=== PATIENT | male | born 1975 | race Caucasian/White ===

== ENCOUNTER 2017-06-29 14:47 | Outpatient (CLI) | payer OTHER | END 2017-06-29 14:48 | disposition home or self-care (01) | LOC: DTY/OP 14:47 | PROVIDERS: ATTEND Surgery | DX: I10 Essential (primary) hypertension (principal); G47.30 Sleep apnea, unspecified | CPT/HCPCS: 97802 ==

== ENCOUNTER 2017-07-19 08:44 | Outpatient (CLI) | payer OTHER ==
--- NOTE | 2017-07-19 10:29 | RAD ---
TWO VIEWS OF CHEST: DATE: 07/19/17. COMPARISON: 07/23/14. HISTORY: Cough. FINDINGS: No pneumothorax, pleural fluid, focal consolidation, or alveolar edema. Heart and mediastinal conto urs unremarkable. IMPRESSION: No acute findings. POS: [facility]
== END 2017-07-19 08:45 | disposition home or self-care (01) ==
LOC: RAD 08:44
PROVIDERS: ATTEND Internal Medicine Critical Care Medicine
DX: R06.00 Dyspnea, unspecified (principal)
CPT/HCPCS: 71020

== ENCOUNTER 2017-09-29 06:17 | Day surgery (SDC) | payer OTHER ==
[2017-09-28 11:40] VITALS: BMI 49.9
[2017-09-29] MEDS ORDERED: Heparin 10,000 UNITS/1 ML VIAL ONE (06:34)
[2017-09-29] MEDS ORDERED: Verapamil 5 MG/2 ML VIAL ONE (08:00)
[2017-09-29] MEDS ORDERED: Nitroglycerin 100MG/250ML BOT 250 ML ONE (08:00)
[2017-09-29 08:07] LABS: #Basophils 0.1 thou/uL (0.0-0.2); #Eosinphils 0.2 thou/uL (0.0-0.7); #Lymphocytes 1.7 thou/uL (1.20-3.40); #Monocytes 0.5 thou/uL (0.11-0.59); %Basophils 0.9 % (0.0-1.0); %Eosinophils 3.1 % (0.0-10.0); %Lymphocytes 26.2 % (21.0-51.0); %Monocytes 7.2 % (0.0-10.0); %Neutrophils 62.6 % (42.0-75.0); Hemoglobin 13.1 g/dL (14.0-18.0); Mean Corpuscular Hemoglobin 32.4 pg (27.0-31.0); Mean Corpuscular Volume 98.4 fl (80.0-94.0); Mean Platelet Volume 7.4 fL (7.4-10.4); Platelet Count 241 thou/uL (130-400); RBC Distribution Width 12.1 % (11.5-14.5); Red Blood Cell (RBC) Count 4.03 mill/uL (4.70-6.10); White Blood Cell (WBC) Count 6.4 thou/uL (4.8-10.8)
[2017-09-29] MEDS ORDERED: Midazolam HCl 2 mg/2 ml Vial ONE ×2 (08:15→08:42)
[2017-09-29 08:20] LABS: INR-International Normal Ratio 1.1; PTT 26.2 SEC (22.9-36.1); Prothrombin Time 13.8 SEC (12.0-14.7)
--- NOTE | 2017-09-29 15:45 | DIS ---
He enters for a procedure, he had a procedure today, and was being discharged afterwards the date of procedure is 09/29/2017. INDICATION FOR PROCEDURE: A 42-year-old patient who was seen as a preop evaluation prior to undergoing a gastric sleeve procedure. He underwent a PET scan, was found to have abnormal SPECT scan with inferior wall ischemia and was advised to undergo cardiac catheterization. He was taken to cardiac pathology laboratory technologist where prepped and draped in sterile fashion. Using a right radial artery approach the procedure was performed . Impression was that there was no evidence of significant coronary artery disease. The right coronary artery is of reasonable size in the proximal area , but small distally , he has a nondominant right coronary There was nom stenosis in the RCA. The dominant vessel was left circumflex. He has no significant flow-limiting disease in the left anterior descending artery or in the circumflex or any other branches. He also has a relatively well preserved left ventricular systolic function. Ejection fraction was estimated at 50%-55%. ADMITTING DIAGNOSES: Morbid obesity, sleep apnea, and diastolic dysfunction as well as hypertension. DISCHARGE DIAGNOSES: Morbid obesity, sleep apnea, and diastolic dysfunction as well as hypertension except there is no evidence of coronary artery disease. DISCHARGE MEDICATIONS: Same as his admission medications. These include Meloxicam 7.5 mg daily, escitalopram 20 mg daily, tramadol ER 200 mg extended tablets 1-2 daily, pantoprazole 40 mg daily, diazepam 10 mg b.i.d. as needed, metoprolol 200 mg daily, lisinopril 10 mg/hydrochlorothiazide 12.5 mg 1 daily, hydrocodone 10 mg/acetaminophen one tablet q.4-6 h. p.r.n. for pain, and Seroquel 200 mg 1 p.o. daily. He will follow with Dr. Arnold in the next 2-3 months or as determined by Dr. Arnold. He can proceed with his gastric procedure. He should be actually had a low risk for any acute cardiac events. HOSPITAL COURSE: This is a very pleasant 42-year-old gentleman with morbid obesity was seen by Dr. Arnold to undergo preop evaluation. During the evaluation, was found to have an abnormal stress test with PET scan compatible with probable inferior wall ischemia and was advised to undergo cardiac catheterization with possible intervention. He was taken to the cardiac catheterization lab where he underwent the procedure today. There was no evidence of significant coronary artery disease. He does have a small nondominant vessel on the right, but no evidence of stenosis and no evidence of stenosis in the left circumflex or left anterior descending artery which are large sized vessels without evidence of occlusion and he has preserved left ventricular systolic function. During the procedure with the injection of the right coronary artery , inadvertently contrast was injected into the conus artery. The patient did develop ventricular fibrillation. He required one shock at 300 joules and was promptly converted back to a sinus rhythm without complications or any evidence of sequelae noted. He did not have any other significant arrhythmias during the procedure except during the left ventriculogram with some irregular rhythms or some tachycardia due to the catheter placement. Otherwise, the left ventricular systolic function also was normal. We used a right radial approach for the procedure without difficulties. The patient will be discharged home in the next 3-4 hours if he remains stable, will see him back in the office as noted above and he can continue his followups for his bariatric surgery as planned. CE
--- NOTE | 2017-10-01 00:18 | EKG ---
Test Reason : PREOP Blood Pressure : / mmHG Vent. Rate : 073 BPM Atrial Rate : 073 BPM P-R Int : 216 ms QRS Dur : 098 ms QT Int : 402 ms P-R-T Axes : 017 050 037 degrees QTc Int : 442 ms Sinus rhythm with 1st degree A-V block Otherwise normal ECG No previous ECGs available Confirmed by Mahesh GEIGER ([id number]) on 10/01/2017 12:17:21 AM Referred By: TITUS Confirmed By:Mahesh GEIGER
== END 2017-09-29 12:25 | disposition home or self-care (01) ==
LOC: CCL 06:17
PROVIDERS: ATTEND Internal Medicine Cardiovascular Disease
DX: R94.39 Abnormal result of other cardiovascular function study (principal); E66.01 Morbid (severe) obesity due to excess calories; G47.33 Obstructive sleep apnea (adult) (pediatric); I51.9 Heart disease, unspecified; H91.93 Unspecified hearing loss, bilateral; I10 Essential (primary) hypertension; Z79.899 Other long term (current) drug therapy; Z68.42 Body mass index [BMI] 45.0-49.9, adult; Z96.642 Presence of left artificial hip joint; Z98.890 Other specified postprocedural states
CPT/HCPCS: 85025; 85610; 85730; 92960; 93005; 93010; 93458; 99152; 99153; C1769; J1644; J2250; J2270

== ENCOUNTER 2019-04-04 16:37 | Inpatient (IN) | payer OTHER ==
[2019-04-04] MEDS ORDERED: Sodium Chloride 0.9% 1,000 ML IV SCH (19:52)
[2019-04-04] MEDS ORDERED: HumaLOG 300 UNITS/3 ML VIAL SC PRN ×2 (20:55)
[2019-04-04] MEDS ORDERED: Acetaminophen 325 MG TAB PO PRN (20:55)
[2019-04-04] MEDS ORDERED: Dextrose 50% Abboject 50 ML SYRINGE SLOW IVP PRN (20:55)
[2019-04-04] MEDS ORDERED: Ondansetron PF 4 MG/2 ML Vial IVP PRN (20:55)
[2019-04-04] MEDS ORDERED: Ondansetron ODT 4 MG TAB PO PRN (20:55)
[2019-04-04] MEDS ORDERED: hydrALAZINE 20 MG/ML VIAL SLOW IVP PRN (20:55)
[2019-04-04] MEDS ORDERED: Dextrose 5% in Water 1,000 ML IV PRN (20:55)
[2019-04-04 21:38] VITALS: BMI 47.8
[2019-04-04] MEDS: Sodium Chloride 0.9% 1,000 ML IV SCH (21:42)
[2019-04-05] MEDS ORDERED: tiZANidine HCl 4 MG TAB PO PRN (00:19)
[2019-04-05] MEDS ORDERED: Acetaminophen 500 MG TAB PO SCH ×2 (01:00→21:00)
[2019-04-05] MEDS ORDERED: diphenhydrAMINE 25 MG CAP PO SCH ×2 (01:00→21:00)
[2019-04-05] MEDS: Piperacillin/Tazobactam 3.375 GM in Sodium Chloride 0.9% 100 ML IVPB SCH ×4 (01:04→18:04)
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
[2019-04-05 05:30] LABS: #Eosinphils 0.1 thou/uL (0.0-0.7); #Lymphocytes 1.4 thou/uL (1.20-3.40); #Monocytes 0.6 thou/uL (0.11-0.59); #Neutrophils 3.9 thou/uL (1.40-6.50); %Basophils 0.2 % (0.0-1.0); %Eosinophils 2.3 % (0.0-10.0); %Lymphocytes 23.2 % (21.0-51.0); %Monocytes 10.5 % (0.0-10.0); %Neutrophils 63.7 % (42.0-75.0); Hemoglobin 11.9 g/dL (14.0-18.0); Mean Corpuscular HGB CONC 34.9 g/dL (32.0-36.0); Mean Corpuscular Hemoglobin 33.9 pg (27.0-31.0); Mean Corpuscular Volume 97.1 fL (78.0-98.0); Mean Platelet Volume 8.7 fL (7.4-10.4); Platelet Count 161 thou/uL (130-400); RBC Distribution Width 12.8 % (11.5-14.5); Red Blood Cell (RBC) Count 3.52 mill/uL (4.70-6.10); White Blood Cell (WBC) Count 6.1 thou/uL (4.8-10.8)
[2019-04-05 05:42] LABS: Lactic Acid 1.3 mmol/L (0.5-2.2)
[2019-04-05 05:46] LABS: Anion Gap 10 mmol/L (10-20); BUN (Urea Nitrogen) 17 mg/dL (8.9-20.6); Calc. Creatinine Clearance 137 mL/min (70-130); Calcium 8.7 mg/dL (7.8-10.44); Carbon Dioxide 25 mmol/L (22-29); Chloride 106 mmol/L (98-107); Estimated GFR-MDRD 54; Glucose 102 mg/dL (70-105); Potassium 4.2 mmol/L (3.5-5.1); Sodium 137 mmol/L (136-145)
[2019-04-05] MEDS: Sodium Chloride 0.9% 1,000 ML IV SCH ×2 (06:00→14:36)
[2019-04-05] MEDS ORDERED: Enoxaparin Sodium 40 MG/0.4 ML SYRINGE SC SCH (09:00)
[2019-04-05 09:42] LABS: Iron 58 ug/dL (65-175); Iron Binding Capacity, Total 235 mcg/dL (261-462)
--- NOTE | 2019-04-05 14:17 | CON ---
DATE OF CONSULTATION: HISTORY OF PRESENT ILLNESS: The patient is a 44-year-old gentleman, who presented with abdominal discomfort. The patient has a history of an atypical chest pain. He has a long history of chest discomfort. He reports having dyspnea and chest pain with exertion. He underwent a cardiac catheterization for the symptoms in 2018. He was found to have normal left ventricular ejection fraction of 50% with normal coronary arteries. The patient states he has noticed having increasing dyspnea on exertion. He was admitted with abdominal discomfort. He continues to report chest pain with exertion. PAST MEDICAL HISTORY: Significant for, 1. Hypertension. 2. Diabetes mellitus. 3. Sleep apnea. 4. Chronic pain. 5. Depression. PAST SURGICAL HISTORY: He had tonsillectomy. He had hip surgery, knee surgery, and back surgery. SOCIAL HISTORY: Former smoker. ALLERGIES: NO KNOWN DRUG ALLERGIES. MEDICATIONS: See nursing list. FAMILY HISTORY: No strong family history of coronary artery disease. REVIEW OF SYSTEMS: Ten-point system otherwise unremarkable. PHYSICAL EXAMINATION: GENERAL: Obese gentleman, in no acute distress. VITAL SIGNS: Blood pressure 117/57. NECK: Showed no jugular venous distention. LUNGS: Clear to auscultation. HEART: Regular rate and rhythm. Normal S1, S2. ABDOMEN: Distended. EXTREMITIES: Showed no edema. VASCULAR: Radial pulses 2+. LABORATORY DATA: Sodium 137, potassium 4.2, chloride 106, bicarbonate 25, BUN 17, creatinine 1.4. His glucose is 102. His white blood cell count was 6.1, hemoglobin 11.9, hematocrit 34.1, platelets were 161. IMAGING STUDIES: His EKG reveals sinus tachycardia with otherwise normal ECG. IMPRESSION: 1. Abdominal discomfort. 2. Chest pain with history of normal coronary arteries. 3. Hypertension. 4. Diabetes mellitus. 5. Chronic pain syndrome. 6. Morbid obesity. This gentleman presents primarily with abdominal discomfort. He underwent an echocardiogram, which revealed a mild decrease in left ventricular systolic function. 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 The life-threatening consequence of not being compliant with his medications was explained to the patient. PLAN: The patient is on appropriate therapy with lisinopril, being on an SAM inhibitor therapy and high dose Toprol. The importance of weight loss has been explained to the patient. We will follow this patient with you through his hospitalization. Job ID: [id number]
[2019-04-05 15:43] VITALS: BP 139/72; TEMP 98.5
--- NOTE | 2019-04-05 16:27 | PDOC.HOSPP ---
- Subjective Subjective: Mr. Hester was seen today in follow-up at approximately 10:00AM in follow-up of Gastroenteritis. He says he feels much better. He does not have any new complaints. - Objective Vital Signs & Weight: Vital Signs (12 hours) Temp Pulse Resp BP Pulse Ox 04/05/19 15:40 98.5 F 84 20 139/72 94 L 04/05/19 11:14 99 F 90 20 128/62 98 04/05/19 08:33 98.7 F 94 18 116/69 93 L 04/05/19 04:36 97.8 F 96 20 117/57 L 96 Weight Admit Weight 323 lb 14.4 oz Weight 323 lb 14.4 oz I&O: 04/04/19 04/05/19 04/06/19 06:59 06:59 06:59 Intake Total 1844 Output Total 1200 Balance 644 Result Diagrams: 04/05/19 05:03 04/05/19 05:03 Additional Labs: Accuchecks 04/05/19 04/05/19 04/04/19 11:14 05:38 20:52 POC Glucose 107 114 H 121 H ROS - Review of Systems All systems: All other ROS were reviewed and found negative. - Medication Medications: Active Medications Generic Name Dose Route Start Last Admin Trade Name Freq PRN Reason Stop Dose Admin Enoxaparin Sodium 40 mg 04/05/19 09:00 04/05/19 08:43 Lovenox SC 40 mg 0900 CINDI Administration Sodium Chloride 1,000 mls @ 125 mls/hr 04/04/19 21:00 04/05/19 14:36 Normal Saline 0.9% IV 1,000 mls .Q8H CINDI Administration Piperacillin Sod/Tazobactam 100 mls @ 200 mls/hr 04/04/19 23:59 04/05/19 11: 13 Sod 3.375 gm/ Sodium Chloride IVPB 100 mls Q6HR CINDI Administration Metoprolol Succinate 100 mg 04/04/19 21:00 04/05/19 08:43 Toprol Xl PO 100 mg BID CINDI Administration Pantoprazole Sodium 40 mg 04/05/19 09:00 04/05/19 08:43 Protonix PO 40 mg DAILY CINDI Administration Sodium Chloride 10 ml 04/05/19 09:00 04/05/19 08:44 Flush - Normal Saline IVF 10 ml Q12HR CINDI Administration Tizanidine HCl 4 mg 04/05/19 00:19 04/05/19 01:06 Zanaflex PO 4 mg BID PRN Administration Muscle Spasm - Exam Eye: PERRL, anicteric sclera Heart: RRR, no murmur, no gallops, no rubs, normal peripheral pulses Respiratory: CTAB, no wheezes, no rales, no ronchi, normal chest expansion Gastrointestinal: soft, non-tender, non-distended, normal bowel sounds, no palpable masses Extremities: no cyanosis, no edema Hosp A/P (1) Gastroenteritis presumed infectious Code(s): K52.9 - NONINFECTIVE GASTROENTERITIS AND COLITIS, UNSPECIFIED Status : Acute (2) Chronic systolic heart failure Code(s): I50.22 - CHRONIC SYSTOLIC (CONGESTIVE) HEART FAILURE Status: Chronic (3) Hypertension Code(s): I10 - ESSENTIAL (PRIMARY) HYPERTENSION Status: Chronic (4) Diabetes mellitus type 2 in obese Code(s): E11.69 - TYPE 2 DIABETES MELLITUS WITH OTHER SPECIFIED COMPLICATION; E66.9 - OBESITY, UNSPECIFIED Status: Chronic - Plan * Sepsis syndrome- likely due to a viral gastroenteritis- can be discharged home off antibiotics * Mild Systolic heart failure- Cardiology input appreciated- he is stable for discharge home with close follow-up.
--- NOTE | 2019-04-06 08:12 | PQF ---
[employer] Associate Crystal Reports Winform Viewer TEJAL MENDEZ TONI MD [phone] [facility]266 [id number] CLINICAL DOCUMENTATION CLARIFICATION FORM: POST DISCHARGE Addendum to original discharge summary date: ____ Late entry note date: __ DATE: 04-06-2019 ATTN: Sabino Ramírez Please exercise your independent, professional judgment in responding to the clarification form. Clinical indicators are provided on the bottom of this form for your review Can you please specify whether Sepsis is ruled in or ruled out during this encounter? Please check appropriate box(s) to clarify if the following diagnosis has been ruled in or ruled out: Sepsis [ XX ] Ruled in diagnosis [ X ] Continue to treat [ ] Resolved [ ] Ruled out diagnosis [ ] Cannot rule out diagnosis [ ] Other diagnosis please specify: [ ] Unable to determine For continuity of documentation, please document condition throughout progress notes and discharge summary. Thank You. CLINICAL INDICATORS: ER 04/04 pg7 Diagnosis: Primary: Sepsis unspecified Additional: Abdominal pain H&P 04/[address] Louis Chief complaint: nausea, vomiting, and fatigue H&P 04/[address] Louis He says he is also feeling fatigued and tired and was having this cramping abdominal pain H&P 04/[address] Louis He was found to be febrile and had an elevated WBC as well as elevated lactic acid. CT of the abdomen was done, but this was negative and he is being admitted for sepsis, but unknown etiology PN 04/[address] Louis Gastroenteritis presumed infectious PN 04/[address] Louis Sepsis Syndrome-likely due to viral gastroenteritis Vital signs ER 04/04: Pulse: 119, 113, 111 Respi=22, 21 Temp=99.9, 99.8 GP=268/ 98 H&P 04/[address] Louis Laboratory Results: white blood cell count 18.8, BUN of 21, creatinine 1.57, glucose 133 RISK FACTOR: H&P 04/04 Dr. Louis- Diabetes mellitus H&P 04/04 Dr. Louis- Hypertension H&P 04/04 Dr. Louis- SYLVESTER PN 04/05 Dr. Louis- Gastroenteritis TREATMENTS: Microbiology 04/04NOV 10- IV fluids NOV 10-Zofran 8 mg tab (This form is maintained as a part of the permanent medical record) 2014 [employer]. All Rights Reserved [email or web address] [not provided] MTDD
--- NOTE | 2019-04-06 13:56 | DIS ---
DATE OF ADMISSION: 04/04/2019 DATE OF DISCHARGE: 04/05/2019 PRIMARY CARE PHYSICIAN: Amy Patel PA-C DISCHARGE DISPOSITION: Home. PRIMARY DISCHARGE DIAGNOSES: 1. Viral gastroenteritis. 2. Sepsis secondary to viral gastroenteritis. 3. Chronic systolic heart failure. 4. Hypertension. 5. Morbid obesity. 6. Diabetes mellitus type 2. DISCHARGE MEDICATIONS: Include; 1. Diphenhydramine. 2. Tylenol 1 tablet q.p.m. 3. Lantus insulin 40 units subcu daily. 4. Lisinopril/hydrochlorothiazide /.5 one tablet daily. 5. Metformin extended release 750 mg daily. 6. Metoprolol 100 mg twice a day. 7. Zofran 8 mg q.4 hours as needed. 8. Protonix 40 mg daily. 9. Seroquel 300 mg daily. 10. Zanaflex 4 mg twice a day. PROCEDURES DONE DURING THE ADMISSION: The patient had a CT scan of the abdomen and pelvis, which was showing some diffuse fatty infiltration of the liver, but no acute finding. The patient also had an echocardiogram, which showed an ejection fraction estimated at 40% to 45%. There is impaired relaxation compatible with diastolic dysfunction. CODE STATUS: Full code. ALLERGIES: NO KNOWN DRUG ALLERGIES. HOSPITAL COURSE: Mr. Hester is a pleasant 44-year-old gentleman, who presented to the emergency room with nausea, vomiting, and diarrhea. He also had some abdominal pain along with this. He was noted to have an elevated white blood cell count as well as elevated lactic acid. This prompted the admission. CT scan was negative. Blood and urine cultures were done, which were negative and the following day, the patient's symptoms had basically completely resolved. The patient had a good appetite and was tolerating a solid diet. The patient also had complained of some chest pain as well and dyspnea on exertion. For this reason, an echocardiogram was obtained. The echo showed a decrease in his ejection fraction compared to a previous cardiac catheterization. It is understandable this is not completely comparable. However, Cardiology was consulted and it was felt that this is likely due to his risk factors of obesity, diabetes, and hypertension. He had had a normal cardiac catheterization approximately a year earlier. There was no need for change of medications, however, he was counseled on healthy lifestyle and the need for weight reduction. He has also been instructed to follow up with his primary care doctor in 1 to 2 weeks. Job ID: [id number]
== END 2019-04-05 19:21 | disposition home or self-care (01) | DRG 872 ==
LOC: ERS 16:37 → 2NO 19:31
PROVIDERS: ADMIT Internal Medicine; ATTEND Internal Medicine
PROC: 3E0234Z Introduction of Serum, Toxoid and Vaccine into Muscle, Percutaneous Approach (ICD-10-PCS; principal; 2019-04-05)
DX: A41.9 Sepsis, unspecified organism (principal); A09 Infectious gastroenteritis and colitis, unspecified; I50.22 Chronic systolic (congestive) heart failure; Z68.42 Body mass index [BMI] 45.0-49.9, adult; I42.8 Other cardiomyopathies; G47.33 Obstructive sleep apnea (adult) (pediatric); M54.9 Dorsalgia, unspecified; F41.9 Anxiety disorder, unspecified; F32.9 Major depressive disorder, single episode, unspecified; E66.01 Morbid (severe) obesity due to excess calories; G89.4 Chronic pain syndrome; I11.0 Hypertensive heart disease with heart failure; E11.69 Type 2 diabetes mellitus with other specified complication; Z87.891 Personal history of nicotine dependence; Z79.4 Long term (current) use of insulin; Z23 Encounter for immunization
CPT/HCPCS: 36415; 36416; 80048; 82274; 82728; 83540; 83550; 83605; 83630; 85025; 87045; 87046; 87324; 87449; 87899; 93306; 96360; J1650; J2543; J3490; Q0163

== ENCOUNTER 2019-06-22 13:31 | Outpatient (CLI) | payer MEDICAID, OTHER ==
--- NOTE | 2019-06-22 14:11 | RAD ---
EXAM: 2 views of the right knee HISTORY: ORIF of patellar fracture. Knee pain. Disability exam. COMPARISON: 06/10/2015 FINDINGS: No knee effusion is seen. The patient is status post ORIF of the patella with screws and a cerclage wire. A small osteophyte is seen in the medial femorotibial compartment. IMPRESSION: Status post ORIF of patella without evidence of acute osseous abnormality.
== END 2019-06-22 13:32 | disposition home or self-care (01) ==
LOC: BICRAD 13:31
PROVIDERS: ATTEND Internal Medicine
DX: Z02.71 Encounter for disability determination (principal); Z98.890 Other specified postprocedural states